=== PATIENT | male | born 1965 | race Caucasian/White ===

== ENCOUNTER 2022-10-05 02:46 | Emergency (ER) | payer MEDICAID, OTHER ==
[~2022-10-05] VITALS: Ht 172.7 cm; Wt 111.4 kg
[2022-10-05 04:19] LABS: CLARITY,URINE CLOUDY (Clear); COLOR,URINE YELLOW (Yellow); GLUCOSE, URINE NEGATIVE (Neg); KETONES,URINE TRACE mg/dl (Neg); LEUKOCYTE ESTERASE ,URINE NEGATIVE (Neg); NITRITES, URINE NEGATIVE (Neg); OCCULT BLOOD,URINE TRACE-INTACT (Neg); PH,URINE 8.5 (4.8-8.0); PROTEIN,URINE NEGATIVE (Neg); UROBILINOGEN,URINE 0.2 E.U/dL (0.2-1.0)
[2022-10-05 04:21] LABS: UA COLLECTION TYPE CLN CATCH MIDSTREAM
[2022-10-05 04:26] LABS: BACTERIA,URINE FEW /HPF (Neg); RBC,URINE 0-2 /HPF (0-2); WBC,URINE 0-4 /HPF (0-4)
[2022-10-05 04:27] LABS: AMORPHOUS PHOSPHATES 4+; MUCUS STRANDS NONE SEEN /LPF (Neg); SQUAMOUS EPITHELIAL CELL,UR NONE SEEN /LPF (FEW)
[2022-10-05 04:49] LABS: LIPASE 152 U/L (73-393)
[2022-10-05 04:58] LABS: HEMATOCRIT 43.9 % (42.0-52.0); HEMOGLOBIN 15.1 g/dl (14.0-17.9); MEAN CORPUSCULAR HGB CONC 34.5 g/dL (33.0-36.5); MEAN CORPUSCULAR VOLUME 87.1 FL (78-98); NEUTROPHILS % (AUTO) 88.4 % (42-75); PLATELET COUNT 255 X10'3 (140-440); RED BLOOD COUNT 5.04 X10'6 (4.70-6.10); RED CELL DISTRIBUTION WIDTH 12.7 % (11.5-14.5); WHITE BLOOD COUNT 13.1 X10'3 (4.5-11.0)
[2022-10-05 04:59] LABS: BASOPHILS % (AUTO) 0.2 % (0-1); EOSINOPHILS % (AUTO) 0.1 % (0-6); LYMPHOCYTES # (AUTO) 0.9 X10'3 (1.1-4.8); LYMPHOCYTES % (AUTO) 7.1 % (21-51); MONOCYTES # (AUTO) 0.6 X10'3 (0-0.9); MONOCYTES % (AUTO) 4.2 % (2-12); NEUTROPHILS # (AUTO) 11.6 X10'3 (1.8-7.7)
[2022-10-05] MEDS ORDERED: acetaminophen 325mg tablet PO ONE (05:20)
[2022-10-05] MEDS ORDERED: ketorolac tromethamine 15mg/ml inj. IM ONE (05:20)
[2022-10-05 05:33] LABS: ANION GAP 14 (8-16); BLOOD UREA NITROGEN 14 MG/DL (7-18); CHLORIDE 100 MMOL/L (99-107); GLUCOSE 143 MG/DL (70-104); POTASSIUM 3.3 MMOL/L (3.5-5.1); SODIUM 138 MMOL/L (135-145); TOTAL CARBON DIOXIDE 23.8 MMOL/L (24-32); eGFR 52 ML/MIN
[2022-10-05 05:34] LABS: ALANINE AMINOTRANSFERASE 27 U/L (12-78); ALBUMIN 3.7 G/DL (3.4-5.0); ALBUMIN/GLOBULIN RATIO 1.1 (1.1-1.5); ALKALINE PHOSPHATASE 65 IU/L (46-116); ASPARTATE AMINO TRANSFERASE 25 U/L (10-37); BILIRUBIN,TOTAL 0.4 MG/DL (0.1-1.0); CALCIUM 9.2 MG/DL (8.5-10.1); TOTAL PROTEIN 7.1 G/DL (6.4-8.2)
[2022-10-05] MEDS ORDERED: oxyCODONE SR 10mg (sust. release) tab PO ONE (05:45)
[2022-10-05] MEDS ORDERED: tamsulosin 0.4mg capsule PO SCH (05:45)
[2022-10-05] MEDS ORDERED: HYDR-3965 PO (05:57)
[2022-10-05] MEDS ORDERED: FLO0.4C PO (05:57)
[2022-10-05] MEDS ORDERED: ONDA4TAB12 PO (05:57)
[2022-10-05 06:43] VITALS: BP 142/72
== END 2022-10-05 06:54 | disposition home or self-care (01) ==
LOC: ER 02:46
DX: R10.9 Unspecified abdominal pain (principal); R11.2 Nausea with vomiting, unspecified; F12.10 Cannabis abuse, uncomplicated; Z87.442 Personal history of urinary calculi; Z88.5 Allergy status to narcotic agent
CPT/HCPCS: 36415; 74176; 80053; 81001; 83690; 83880; 84484; 85025; 93005; 96372; 99285; J1885